=== PATIENT | male | born 1940 | race Caucasian/White ===

== ENCOUNTER 2017-11-25 19:27 | Emergency (ER) | payer OTHER ==
[~2017-11-25] VITALS: Ht 180.3 cm; Wt 98.3 kg
[~2017-11-25 19:27] MED LIST: 1-ME1LIQ PO; HYDR-2768 PO; Z.0.UNKNOWN; ZOCO80TA PO
[2017-11-25 19:33] VITALS: BP 188/84; PULSE 65; RESP 18; TEMP 97.9; O2SAT 99
[2017-11-25] MEDS ORDERED: ACETAMINOPHEN 325 MG TAB PO ONE (19:45)
[2017-11-25] MEDS ORDERED: TETANUS/DIPHTHERIA TOXOID ADULT 0.5 ML VIAL IM ONE (19:45)
--- NOTE | 2017-11-25 20:53 | RADRPT ---
EXAM DATE: 11/25/2017 8:44 PM EDT AGE/SEX: 77 years / Male INDICATIONS: Laceration right frontal region post fall. CLINICAL DATA: This is the patient's initial encounter. Patient reports that signs and symptoms have been present for 1 day and indicates a pain score of 5/10. MEDICAL/SURGICAL HISTORY: Hypertension. None. RADIATION DOSE: 62.59 CTDI (mGy) COMPARISON: [facility] – [place] BRAIN W/O CONTRAST, 04/02/2013. . TECHNIQUE: CT of the head without contrast. Using automated exposure control and adjustment of the mA and/or kV according to patient size, radiation dose was kept as low as reasonably achievable to ob tain optimal diagnostic quality images. FINDINGS: Right frontal scalp soft tissue swelling. No hemorrhage, infarction, or mass. No fractures are seen. CONCLUSION: 1. Right frontal scalp soft tissue swelling. Electronically signed by: Felipe eSlf MD 11/25/2017 8:52 PM EDT
--- NOTE | 2017-11-25 20:53 | PD ---
HPI Chief Complaint: Laceration/Skin Injury Time Seen by Provider: 19:38 Travel History International Travel<30 days: No Contact w/Intl Traveler<30days: No Traveled to known affect area: No History of Present Illness HPI This is a 77-year-old male here with a laceration to his right forehead. He reports he tripped and fell while in his carport landing on the concrete injuring the forehead prior to arrival. There was no loss of consciousness. He is not anticoagulated. He reports the wound continued to bleed therefore his encouraged him to come to the ER for evaluation. He reports mild discomfort at the site of the laceration. Denies headache, visual changes, neck pain, chest pain, shortness of breath, abdominal pain, paresthesia or weakness of the extremities. He denies any other injuries. Symptom severity is mild to moderate. No aggravating or alleviating factors. PFSH Past Medical History Narrative Medical Significant for hypertension high cholesterol. High Cholesterol: Yes Hypertension: Yes Influenza Vaccination: Yes Past Surgical History Tonsillectomy: Yes Social History Alcohol Use: Yes (1 COCKTAIL EVERY NIGHT) Tobacco Use: No Substance Use: No Allergies-Medications (Allergen,Severity, Reaction): Coded Allergies: No Known Allergies (Verified Adverse Reaction, Unknown, 11/25/17) Reported Meds & Prescriptions Reported Meds & Active Scripts Active Review of Systems Except as stated in HPI: all other systems reviewed are Neg General / Constitutional: No: Fever Eyes: No: Visual changes HENT: No: Headaches Cardiovascular: No: Chest Pain or Discomfort Respiratory: No: Shortness of Breath Gastrointestinal: No: Abdominal Pain Genitourinary: No: Dysuria Musculoskeletal: No: Pain Skin: No Rash Neurologic: No: Weakness Physical Exam Narrative GENERAL: Alert and well-appearing 77-year-old male. Patient is laughing with his at bedside. No distress. SKIN: 1.5 cm laceration to the right forehead. Minimal bleeding. HEAD: Normocephalic. No hematomas. EYES: Pupils equal and round. EOMs intact. No injection or drainage. ENT: No nasal bleeding or discharge. Mucous membranes pink and moist. NECK: Trachea midline. No cervical midline tenderness. Can freely move the neck. CARDIOVASCULAR: Regular rate and rhythm. No chest wall tenderness. RESPIRATORY: No accessory muscle use. Clear to auscultation. Breath sounds equal bilaterally. GASTROINTESTINAL: Abdomen soft, non-tender, nondistended. MUSCULOSKELETAL: Extremities without clubbing, cyanosis, or edema. No obvious deformities. No bony tenderness of the extremities. NEUROLOGICAL: Awake and alert. No obvious cranial nerve deficits. Motor grossly within normal limits. Five out of 5 muscle strength in the arms and legs. Normal speech. PSYCHIATRIC: Appropriate mood and affect; insight and judgment normal. Data Data Last Documented VS Vital Signs Date Time Temp Pulse Resp B/P (MAP) Pulse Ox O2 Delivery O2 Flow Rate FiO2 11/25/17 19:33 97.9 65 18 188/84 (118) [address] Brain W/O Iv Contrast(Rout) (11/25/17 ) Ct Cerv Spine W/O Contrast (11/25/17 ) Tetanus/Diphtheria Tox Adult (Tetanus/Di (11/25/17 19:45) Acetaminophen (Tylenol) (11/25/17 19:45) MDM Medical Decision Making Medical Screen Exam Complete: Yes Emergency Medical Condition: Yes Differential Diagnosis Facial laceration, head injury, ICH, cervical fracture Narrative Course 77-year-old male here with a laceration to his forehead after he had a trip and fall prior to arrival. He has a normal neurologic exam. He is not anticoagulated. Laceration repair performed. CT of the brain and cervical spine ordered and pending. CT the brain: No intracranial hemorrhage CT of the cervical spine: No fracture Patient is stable and ready for discharge. Return precautions discussed. He agrees to follow-up with his primary doctor. Procedures Procedure Narrative LACERATION LOCATION: Right forehead LENGTH: 1.5 cm NUMBER OF STITCHES/CHRISTINE: 4 REPAIR: The area of the laceration was prepped with Betadine and sterilely draped. The laceration was infiltrated with 1% lidocaine. The wound was copiously irrigated and explored without evidence of foreign body, tendon injury or neurovascular injury. The wound was closed using 5-0 Ethilon. This was a single layer repair. A sterile dressing was applied. The patient was advised to keep the dressing clean and dry. Patient tolerated the procedure well. Diagnosis Primary Impression: Facial laceration Qualified Codes: S01.81XA - Laceration without foreign body of other part of head, initial encounter Referrals: Primary Care Physician Additional Instructions: Sutures need to be removed in 5-10 days. Tylenol or ibuprofen as needed for pain. Return to emergency department if he develops severe headache, visual changes, repeated vomiting, numbness or weakness in her extremities Disposition: 01 DISCHARGE HOME Condition: Stable Millicent Millan Nov 25, 2017 20:53
--- NOTE | 2017-11-25 20:54 | RADRPT ---
EXAM DATE: 11/25/2017 8:48 PM EDT AGE/SEX: 77 years / Male INDICATIONS: Neck pain post fall. CLINICAL DATA: This is the patient's initial encounter. Patient reports that signs and symptoms have been present for 1 day and indicates a pain score of 5/10. MEDICAL/SURGICAL HISTORY: Hypertension. None. RADIATION DOSE: 26.58 CTDI (mGy) COMPARISON: No prior [facility] exams available for comparison. TECHNIQUE: Contiguous axial images were obtained using helical multirow detector technique. The vol umetric data was post-processed with multiplanar reconstruction in oblique axial, sagittal, and coron al planes. Using automated exposure control and adjustment of the mA and/or kV according to patient s ize, radiation dose was kept as low as reasonably achievable to obtain optimal diagnostic quality madonna ges. FINDINGS: Alignment is normal. No prevertebral soft tissue swelling or compression deformity. Moderate multilev el osteophytosis is seen. Severe disc space narrowing at C4-5 through C6-7 identified. Moderate multi level facet hypertrophic changes are present. The odontoid process is intact. Cervicothoracic junctio n is approximated. CONCLUSION: 1. Degenerative changes are noted without evidence for acute fracture or listhesis. Electronically signed by: Felipe Self MD 11/25/2017 8:53 PM EDT
[2017-11-25 21:26] VITALS: BP 151/82
[2017-11-26] MEDS ORDERED: ASPI-516 CHEW (18:17)
[2017-11-26] MEDS ORDERED: SIMV40TA PO (18:17)
[2017-11-26] MEDS ORDERED: PROP40TA3 PO (18:17)
[2017-11-26] MEDS ORDERED: AMLO10TA2 PO (18:17)
[2017-11-26] MEDS ORDERED: PRIM50TA5 PO (18:17)
[2017-11-26] MEDS ORDERED: HYDR25TA5 PO (18:17)
[2017-11-26] MEDS ORDERED: ZOFR4TAB PO (18:32)
== END 2017-11-25 21:27 | disposition home or self-care (01) ==
LOC: PHEFT 19:27
DX: S01.81XA Laceration without foreign body of other part of head, initial encounter (principal); E78.00 Pure hypercholesterolemia, unspecified; I10 Essential (primary) hypertension; Z23 Encounter for immunization; W01.0XXA Fall on same level from slipping, tripping and stumbling without subsequent striking against object, initial encounter; Y92.008 Other place in unspecified non-institutional (private) residence as the place of occurrence of the external cause
CPT/HCPCS: 12011; 70450; 72125; 90471; 90714

== ENCOUNTER 2017-11-26 17:42 | Emergency (ER) | payer OTHER ==
[~2017-11-26] VITALS: Ht 180.3 cm; Wt 96.0 kg
[2017-11-26 17:47] VITALS: BP 105/58; PULSE 90; RESP 18; TEMP 97.3; O2SAT 97
[2017-11-26] MEDS ORDERED: ONDANSETRON ODT 4 MG TAB PO ONE (18:15)
[2017-11-26] MEDS ORDERED: PRIM50TA5 PO (18:17)
[2017-11-26] MEDS ORDERED: ASPI-516 CHEW (18:17)
[2017-11-26] MEDS ORDERED: HYDR25TA5 PO (18:17)
[2017-11-26] MEDS ORDERED: PROP40TA3 PO (18:17)
[2017-11-26] MEDS ORDERED: AMLO10TA2 PO (18:17)
[2017-11-26] MEDS ORDERED: SIMV40TA PO (18:17)
--- NOTE | 2017-11-26 18:17 | PD ---
HPI . Dizziness and vomiting Chief Complaint: Dizziness Time Seen by Provider: 18:01 Travel History International Travel<30 days: No Contact w/Intl Traveler<30days: No Traveled to known affect area: No History of Present Illness HPI This patient presents for the acute onset of dizziness associated with nausea and vomiting. It started at 4 PM while he was standing up in the kitchen preparing dinner. The concerning factor is that he had a fall with a blow to the head yesterday. He was seen here. He did have a CT scan done. However, he was told to return if he develops any signs or symptoms concerning for head injury. Dizziness and nausea/vomiting was on the list. Therefore, he returns today for repeat evaluation. He denies any diplopia or blurred vision. He denies any significant head pain. His mentation has been normal. [facility] Past Medical History High Cholesterol: Yes Hypertension: Yes Past Surgical History Tonsillectomy: Yes Social History Alcohol Use: Yes (1 COCKTAIL EVERY NIGHT) Tobacco Use: No Substance Use: No Allergies-Medications (Allergen,Severity, Reaction): Coded Allergies: No Known Allergies (Verified Adverse Reaction, Unknown, 11/26/17) Reported Meds & Prescriptions Reported Meds & Active Scripts Active Reported Simvastatin 40 Mg Tab 40 Mg PO HS Primidone 50 Mg Tab 50 Mg PO BID Propranolol (Propranolol HCl) 40 Mg Tab 40 Mg PO BID Aspirin 81 Mg Chew 81 Mg CHEW DAILY Amlodipine (Amlodipine Besylate) 10 Mg Tab 10 Mg PO DAILY Hydrochlorothiazide 25 Mg Tab 25 Mg PO DAILY Review of Systems Except as stated in HPI: all other systems reviewed are Neg Physical Exam Narrative GENERAL: Awake and alert and in no acute distress. SKIN: Warm and dry. Normal color and turgor. He has a sutured laceration on his right forehead. There is some associated contusion. HEAD: Normocephalic/atraumatic. EYES: Pupils are equal. Extraocular movements are intact. NECK: Normal range of motion. Supple. CARDIOVASCULAR: Regular rate and rhythm. RESPIRATORY: Nonlabored respirations. Normal sats. ABDOMEN: Abdomen is soft and nontender. MUSCULOSKELETAL: Atraumatic. Normal muscle tone. NEUROLOGICAL: A and O 3. Registrar Assistant are full and equal. Sufnve-jruk-yfeilv exam is intact. PSYCHIATRIC: Appropriate mood and affect. Data Data Last Documented VS Vital Signs Date Time Temp Pulse Resp B/P (MAP) Pulse Ox O2 Delivery O2 Flow Rate FiO2 11/26/17 17:47 97.3 90 18 105/58 (74) [address] Brain W/O Iv Contrast(Rout) (11/26/17 18:06) Ondansetron Odt (Zofran Odt) (11/26/17 18:15) Ed Discharge Order (11/26/17 18:31) MDM Medical Decision Making Medical Screen Exam Complete: Yes Emergency Medical Condition: Yes Differential Diagnosis My differential diagnosis of head trauma includes but is not limited to scalp contusion, concussion, intracerebral hemorrhage. Narrative Course This is a patient who presents for the evaluation of acute dizziness associated with nausea and vomiting. He had a fall yesterday with an injury to his head. Repeat CT is pending to rule out epidural hematoma. Last Impressions Head CT 11/26/171805 Signed Impressions: CONCLUSION: 1. Unchanged right frontal soft tissue swelling. 2. No acute intracranial abnormality. Diagnosis Primary Impression: Dizziness Additional Impression: Vomiting Qualified Codes: R11.2 - Nausea with vomiting, unspecified Patient Instructions: Acute Nausea and Vomiting (DC), General Instructions Med/Other Pt SpecificInfo: Prescription(s) given Scripts Ondansetron (Zofran) 4 Mg Tab 4 MG PO Q6HR Y for NAUSEA OR VOMITING, #6 TAB 0 Refills Prov: Bridget Kim MD 11/26/17 Disposition: 01 DISCHARGE HOME Condition: Stable Bridget Kim MD Nov 26, 2017 18:17
--- NOTE | 2017-11-26 18:28 | RADRPT ---
EXAM DATE: 11/26/2017 6:19 PM EDT AGE/SEX: 77 years / Male INDICATIONS: Dizziness. CLINICAL DATA: This is the patient's initial encounter. Patient reports that signs and symptoms have been present for 2 days and indicates a pain score of 0/10. MEDICAL/SURGICAL HISTORY: Hypertension. . RADIATION DOSE: 62.64 CTDI (mGy) COMPARISON: CT brain 11/25/2017. TECHNIQUE: CT of the head without contrast. Using automated exposure control and adjustment of the mA and/or kV according to patient size, radiation dose was kept as low as reasonably achievable to ob tain optimal diagnostic quality images. FINDINGS: Cerebrum: The ventricles are normal for age. No evidence of midline shift, mass lesion, hemorrhage or acute infarction. No extraaxial fluid collections are seen. Posterior Fossa: The cerebellum and brainstem are intact. The 4th ventricle is midline. The cerebe llopontine angle is unremarkable. Extracranial: The visualized portion of the orbits is intact. Right frontal soft tissue swelling is unchanged. Skull: The calvaria is intact. No evidence of skull fracture. CONCLUSION: 1. Unchanged right frontal soft tissue swelling. 2. No acute intracranial abnormality. Electronically signed by: Buddy Salinas MD 11/26/2017 6:27 PM EDT
[2017-11-26] MEDS ORDERED: ZOFR4TAB PO (18:32)
[2017-11-26 18:45] VITALS: BP 113/73
== END 2017-11-26 18:47 | disposition home or self-care (01) ==
LOC: PHED 17:42
DX: R42 Dizziness and giddiness (principal); R11.2 Nausea with vomiting, unspecified; S01.81XD Laceration without foreign body of other part of head, subsequent encounter; W19.XXXD Unspecified fall, subsequent encounter; E78.00 Pure hypercholesterolemia, unspecified; I10 Essential (primary) hypertension
CPT/HCPCS: 70450; 99283